=== PATIENT | male | born 2000 | race Caucasian/White ===

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

== ENCOUNTER 2021-10-19 12:25 | Inpatient (IN) | payer SELFPAY ==
[~2021-10-19] VITALS: Ht 172.7 cm; Wt 105.4 kg
[2021-10-19 01:27] VITALS: BP 131/72
[~2021-10-19 12:25] MED LIST changes: +KEFLEX500 M1 PO; +NAPROSYN500 MG PO; +SEPTDS PO
[2021-10-19 12:35] VITALS: BP 142/80
[2021-10-19 13:29] LABS: BASO % 0.1 % (0.0-1.0); EOS # 0.1 10*3/uL (0.0-0.4); EOS % 0.9 % (1.0-4.0); HEMATOCRIT 44.1 % (42.0-52.0); LYMPH # 1.2 10*3/uL (1.3-4.4); LYMPH % 13.6 % (27.0-41.0); MEAN CORPUSCULAR HGB 28.7 pg (27.0-31.0); MEAN CORPUSCULAR HGB CONC 33.3 g/dl (33.0-37.0); MEAN PLATELET VOLUME 9.1 fl (9.6-12.3); MONO # 0.9 10*3/uL (0.1-1.0); NEUT # 6.4 10*3/uL (2.3-7.9); NEUT % 74.9 % (47.0-73.0); PLATELET COUNT AUTOMATED 234 10*3/uL (130-400); RED BLOOD COUNT 5.13 10*6/uL (4.50-5.90); RED CELL DISTRI WIDTH 12.6 % (0-14.5); WHITE BLOOD COUNT 8.5 10*3/uL (4.8-10.8)
[2021-10-19 13:43] LABS: ALKALINE PHOSPHATASE 56 U/L (45-117); BUN 12 mg/dl (7-24); CHLORIDE 106 mmol/L (98-107); CREATININE 1.04 mg/dL (0.70-1.30); POTASSIUM 3.8 mmol/L (3.5-5.1); SGOT/AST 18 IU/L (3-35); SGPT/ALT 40 U/L (12-78); SODIUM 139 mmol/L (136-145); TOTAL PROTEIN 7.5 gm/dL (6.4-8.2)
[2021-10-19 17:30] VITALS: BP 135/76
[2021-10-20 05:39] LABS: BUN 12 mg/dl (7-24); CHLORIDE 106 mmol/L (98-107); CREATININE 0.94 mg/dL (0.70-1.30); POTASSIUM 3.7 mmol/L (3.5-5.1); SODIUM 140 mmol/L (136-145)
[2021-10-20 05:43] LABS: CHOLESTEROL 142 mg/dL (<200); LDL CHOLESTEROL 79 mg/dL (9-159); TRIGLYCERIDES 91 mg/dl (<150)
[2021-10-20 06:13] LABS: BASO % 0.3 % (0.0-1.0); EOS # 0.2 10*3/uL (0.0-0.4); EOS % 2.1 % (1.0-4.0); HEMATOCRIT 44.3 % (42.0-52.0); LYMPH # 2.2 10*3/uL (1.3-4.4); LYMPH % 23.5 % (27.0-41.0); MEAN CELL VOLUME 87.5 fl (80.0-94.0); MEAN CORPUSCULAR HGB 29.2 pg (27.0-31.0); MEAN CORPUSCULAR HGB CONC 33.4 g/dl (33.0-37.0); MEAN PLATELET VOLUME 9.5 fl (9.6-12.3); MONO # 0.9 10*3/uL (0.1-1.0); MONO % 9.7 % (3.0-9.0); NEUT # 5.9 10*3/uL (2.3-7.9); NEUT % 63.9 % (47.0-73.0); PLATELET COUNT AUTOMATED 228 10*3/uL (130-400); RED BLOOD COUNT 5.06 10*6/uL (4.50-5.90); RED CELL DISTRI WIDTH 12.7 % (0-14.5); WHITE BLOOD COUNT 9.3 10*3/uL (4.8-10.8)
[2021-10-20 06:30] VITALS: BP 118/79
[2021-10-20 07:41] VITALS: BP 120/70
[2021-10-20 12:00] VITALS: BP 115/66
[2021-10-20 16:00] VITALS: BP 135/67
[2021-10-20 20:00] VITALS: BP 139/89
[2021-10-21] VITALS: BP 139/75
[2021-10-21 08:00] VITALS: BP 143/80
[2021-10-21 12:00] VITALS: BP 135/76
[2021-10-21] MEDS ORDERED: CEPHALEXIN500 M1 PO (14:03)
[2021-10-21] MEDS ORDERED: CLINDAMYCIN HC300 MG PO (14:03)
== END 2021-10-21 15:41 | disposition home or self-care (01) | DRG 603 ==
LOC: ED 12:25 → 5E 18:11 → EDHOLD 18:11 → 5E 10-20 08:01
PROVIDERS: Family Medicine; Registered Nurse; ADMIT Student in an Organized Health Care Education/Training Program; ATTEND Student in an Organized Health Care Education/Training Program
DX: L03.213 Periorbital cellulitis (principal); E44.1 Mild protein-calorie malnutrition; R73.9 Hyperglycemia, unspecified; I10 Essential (primary) hypertension; E66.9 Obesity, unspecified; Z68.35 Body mass index [BMI] 35.0-35.9, adult

== ENCOUNTER 2022-12-19 02:09 | Emergency (ER) | payer SELFPAY ==
[~2022-12-19] VITALS: Ht 172.7 cm; Wt 90.7 kg
[~2022-12-19 02:09] MED LIST changes: +CEPHALEXIN500 M1 PO; +CLINDAMYCIN HC300 MG PO
== END 2022-12-19 02:36 | disposition left against medical advice (07) ==
LOC: ED 02:09
DX: K03.81 Cracked tooth (principal); R60.0 Localized edema; Z53.21 Procedure and treatment not carried out due to patient leaving prior to being seen by health care provider